=== PATIENT | male | born 2000 | race Caucasian/White ===

== ENCOUNTER 2022-08-08 05:03 | Emergency (ER) | payer OTHER ==
[2022-08-08 05:11] VITALS: RESP 18
--- NOTE | 2022-08-08 06:04 | ED ---
Lower Extremity Injury HPI - General Chief Complaint: Extremity Injury, Lower Stated Complaint: Fall, Right Leg Injury Time Seen by Provider: 08/08/22 05:41 Source: patient, EMS Mode of arrival: EMS Limitations: no limitations - History of Present Illness Initial Comments: This patient is 21-year-old man brought by ambulance to evaluation for knee pain. The patient was at work tonight states she had been lifting some heavy boxes, bending and straightening. He states that he bumped his leg while he was moving and then had acute sharp knee pain. He looked down and saw that his patella had been moved to the side. He was not able to walk. Ambulance was called and the patient states that during transportation here the ambulance hit a bump and it appeared that the kneecap popped back into its normal position. He states that the symptoms have nearly entirely resolved. No previous history. Complaint: knee injury -: minutes(s) Injury: Knee: Right Type of Injury: other Place: work Severity: severe Context: direct blow Associated Symptoms: snap/pop sensation - Related Data Allergies Allergy/AdvReac Type Severity Reaction Status Date / Time bee pollen Allergy Anaphylaxis Verified 08/08/22 05:11 Review of Systems ROS Statement: Those systems with pertinent positive or pertinent negative responses have been documented in the HPI. ROS Other: All systems not noted in ROS Statement are negative. Constitutional: Denies: weakness Cardiovascular: Denies: chest pain, syncope Musculoskeletal: Reports: arthralgia. Denies: back pain, myalgia Neurological: Denies: weakness, numbness Past Medical History Past Medical History: No Reported History History of Any Multi-Drug Resistant Organisms: None Reported Past Surgical History: No Surgical Hx Reported Past Psychological History: No Psychological Hx Reported Smoking Status: Never smoker Past Alcohol Use History: None Reported Past Drug Use History: None Reported General Exam Limitations: no limitations General appearance: alert, in no apparent distress Respiratory exam: Present: normal lung sounds bilaterally. Absent: respiratory distress, wheezes, rales, rhonchi, stridor Cardiovascular Exam: Present: regular rate, normal rhythm, normal heart sounds. Absent: systolic murmur, diastolic murmur, rubs, gallop GI/Abdominal exam: Present: soft. Absent: tenderness, guarding Extremities exam: Present: normal inspection, full ROM, normal capillary refill. Absent: tenderness, pedal edema Neurological exam: Absent: motor sensory deficit Skin exam: Present: warm, dry, intact, normal color. Absent: rash Course Vital Signs 08/08/22 08/08/22 05:08 06:12 Temperature 98.1 F 98.0 F Pulse Rate 111 H 87 Respiratory 18 18 Rate Blood Pressure 132/86 135/77 O2 Sat by Pulse 98 99 Oximetry Medical Decision Making - Medical Decision Making Patient is 21-year-old man brought here for right knee pain. He gives typical history for right patellar dislocation with spontaneous reduction prior to arrival here. We discussed the appropriate further care and follow-up as well as return parameters. Was pt. sent in by a medical professional or institution (, PA, ARCHAEOLOGY PROFESSOR, urgent care, hospital, or jail...) When possible be specific @ -[No] Did you speak to anyone other than the patient for history (EMS, parent, family, police, friend...)? What history was obtained from this source @ -[EMS Did you review nursing and triage notes (agree or disagree)? Why? @ -[I reviewed and agree with nursing and triage notes] Were old charts reviewed (outside hosp., previous admission, EMS record, old EKG, old radiological studies, urgent care reports/EKG's, jail records)? Report findings @ -[No old charts were reviewed] Differential Diagnosis (chest pain, altered mental status, abdominal pain women, abdominal pain men, vaginal bleeding, weakness, fever, dyspnea, syncope, headache, dizziness, GI bleed, back pain, seizure, CVA, palpatations, mental health, musculoskeletal)? @ -[not applicable] EKG interpreted by me (3pts min.). @ -[ X-rays interpreted by me (1pt min.). @ -[None done] CT interpreted by me (1pt min.). @ -[None done] U/S interpreted by me (1pt. min.). @ -[None done] What testing was considered but not performed or refused? (CT, X-rays, U/S, labs)? Why? @ -[X-rays of the right knee were considered, but the patient declined stating that he feels well now and would like to save the expense. What meds were considered but not given or refused? Why? @ -[None] Did you discuss the management of the patient with other professionals (professionals i.e. , PA, ARCHAEOLOGY PROFESSOR, lab, RT, psych nurse, web content & social media manager, setter up, teacher, global safety officer, case aide)? Give summary @ -[No] Was smoking cessation discussed for >3mins.? @ -[No] Was critical care preformed (if so, how long)? @ -[No] Were there social determinants of health that impacted care today? How? (Homelessness, low income, unemployed, alcoholism, drug addiction, transportation, low edu. Level, literacy, decrease access to med. care, prison, rehab)? @ -[No] Was there de-escalation of care discussed even if they declined (Discuss DNR or withdrawal of care, Hospice)? DNR status @ -[No] What co-morbidities impacted this encounter? (DM, HTN, Smoking, COPD, CAD, Cancer, CVA, ARF, Chemo, Hep., AIDS, mental health diagnosis, sleep apnea, morbid obesity)? @ -[None] Was patient admitted / discharged? Hospital course, mention meds given and route, prescriptions, significant lab abnormalities, going to OR and other pertinent info. @ -[Discharged Undiagnosed new problem with uncertain prognosis? @ -[No] Drug Therapy requiring intensive monitoring for toxicity (Heparin, Nitro, Insulin, Cardizem)? @ -[No] Were any procedures done? @ -[No] Diagnosis/symptom? @ -[Acute patellar dislocation, resolved Acute, or Chronic, or Acute on Chronic? @ -[Acute, uncomplicated Uncomplicated (without systemic symptoms) or Complicated (systemic symptoms)? @ -[default] Side effects of treatment? @ -[No] Exacerbation, Progression, or Severe Exacerbation? @ -[No] Poses a threat to life or bodily function? How? (Chest pain, [place], [place], pneumonia, PE, COPD, DKA, ARF, appy, cholecystitis, CVA, Diverticulitis, Homicidal, Suicidal, threat to staff... and all critical care pts) @ -[No] Disposition Clinical Impression: Patellar dislocation Disposition: HOME SELF-CARE Condition: Good Instructions (If sedation given, give patient instructions): Patellar Dislocation (ED) Is patient prescribed a controlled substance at d/c from ED?: No Referrals: None,Stated [Primary Care Provider] - 1-2 days Chris Vasquez MD [Medical Doctor] - 1-2 days
[2022-08-08 06:13] VITALS: BP 135/77; PULSE 87; TEMP 98
== END 2022-08-08 06:13 | disposition home or self-care (01) ==
LOC: EC 05:03
DX: S83.104A Unspecified dislocation of right knee, initial encounter (principal); Z91.030 Bee allergy status; X50.0XXA Overexertion from strenuous movement or load, initial encounter
CPT/HCPCS: 99284; L1830